=== PATIENT | female | born 1950 | race Caucasian/White ===

== ENCOUNTER 2017-04-01 12:09 | Emergency (ER) | payer MEDICARE, BC ==
[~2017-04-01] VITALS: Ht 160 cm; Wt 56.0 kg
[2017-04-01 12:15] VITALS: BP 152/78
[2017-04-01 13:17] LABS: ASPARTATE AMINO TRANSFERASE 15 U/L (15-37); BLOOD UREA NITROGEN 11 mg/dL (7-18)
[2017-04-01] MEDS ORDERED: KETOROLAC 30 MG/1 ML IVPush ONE (13:30)
[2017-04-01] MEDS ORDERED: DIAZEPAM 5 MG TABLET PO ONE (13:30)
[2017-04-01] MEDS ORDERED: DIAZEPAM 5 MG TABLET ONE (13:54)
[2017-04-01] MEDS ORDERED: KETOROLAC 30 MG/1 ML ONE (13:54)
== END 2017-04-01 16:03 | disposition home or self-care (01) ==
LOC: ED 12:34
DX: R20.9 Unspecified disturbances of skin sensation (principal); I10 Essential (primary) hypertension; M48.02 Spinal stenosis, cervical region
CPT/HCPCS: 36415; 72125; 80053; 85025; 85610; 85730; 93005; 96374; 99285; J1885